=== PATIENT | male | born 1955 | race African-American/Black ===

== ENCOUNTER 2023-09-27 11:49 | Inpatient (IN) | payer MEDICARE, OTHER ==
[~2023-09-27] VITALS: Ht 165.1 cm; Wt 79.8 kg
[2023-09-27] MEDS ORDERED: ACET-868 PO (12:55)
[2023-09-27] MEDS ORDERED: DOCU100C36 PO (12:55)
[2023-09-27] MEDS ORDERED: LOSA50TA39 PO (12:55)
[2023-09-27] MEDS ORDERED: CHOL100043 PO (12:55)
[2023-09-27] MEDS ORDERED: METO25TA4 PO (12:55)
[2023-09-27] MEDS ORDERED: MEMA10TA PO (12:55)
[2023-09-27] MEDS ORDERED: ASPI-1420 PO (12:55)
[2023-09-27 12:56] LABS: BASOPHILS # (AUTO) 0.1 K/uL (0.0-0.2); EOSINOPHILS # (AUTO) 0.5 K/uL (0.0-0.7); MONOCYTES # (AUTO) 0.8 K/uL (0.1-1.30)
[2023-09-27 13:00] LABS: BASOPHILS % (AUTO) 0.7 % (0.0-2.0); EOSINOPHILS % (AUTO) 6.1 % (0.0-6.0); HEMATOCRIT 54 % (39-51); LYMPHOCYTES # (AUTO) 3.1 K/uL (0.8-4.8); LYMPHOCYTES % (AUTO) 34.7 % (20.0-44.0); MEAN CORPUSCULAR HEMOGLOBIN 32 PG (26.0-33.0); MEAN CORPUSCULAR HGB CONC 33 g/dl (31.0-36.0); MEAN CORPUSCULAR VOLUME 96 fL (80-96); MONOCYTES % (AUTO) 9.2 % (2.0-12.0); NEUTROPHILS # (AUTO) 4.3 K/uL (1.8-8.9); NEUTROPHILS % (AUTO) 49.3 % (43.0-81.0); PLATELET COUNT (AUTO) 169 K/uL (150-450); RED BLOOD CELL COUNT(AUTO) 5.59 MIL/uL (4.5-6.0); RED CELL DISTRIBUTION WIDTH 14.3 % (11.5-15.0); WHITE BLOOD COUNT (AUTO) 8.8 K/uL (4.3-11.0)
[2023-09-27 13:06] LABS: SERUM AMMONIA 16 umol/L (11-32)
[2023-09-27 13:13] LABS: CALCIUM, SERUM 9.3 mg/dL (8.5-10.1); CARBON DIOXIDE 24 mmol/L (21-32); CHLORIDE 105 mmol/L (98-107); CREATININE 1.4 mg/dL (0.6-1.3); GLUCOSE 90 mg/dL (74-106); POTASSIUM 4.6 mmol/L (3.5-5.1); SODIUM SERUM 138 mmol/L (136-145); UREA NITROGEN, BLOOD 14 mg/dL (7-18)
[2023-09-27 13:17] LABS: LACTIC ACID 1.3 mmol/L (0.4-2.0)
[2023-09-27 13:26] LABS: THYROID STIMULATING HORMONE 1.928 uIU/mL (0.358-3.74)
[2023-09-27 13:27] LABS: ALANINE AMINOTRANSFERASE 29 U/L (12-78); ALBUMIN 3.5 g/dL (3.4-5.0); ALCOHOL, BLOOD 5 mg/dL (0-10); ALKALINE PHOSPHATASE 85 U/L (46-116); ASPARTATE AMINOTRANSFERASE 37 U/L (15-37); BILIRUBIN,DIRECT 0.1 mg/dL (0.0-0.2); TOTAL PROTEIN, SERUM 8.7 g/dL (6.4-8.2)
[2023-09-27 13:29] LABS: ACETAMINOPHEN 0 ug/ml (10-30); SALICYLATE 1.4 mg/dL (2.8-20.0)
[2023-09-27] MEDS ORDERED: ACETAMINOPHEN 325 MG TABLET PO PRN ×2 (14:00→15:00)
[2023-09-27] MEDS ORDERED: MAGNESIUM HYDROXIDE 30 ML UDC PO PRN (15:00)
[2023-09-27] MEDS ORDERED: ZOLPIDEM TARTRATE 5 MG TABLET PO PRN (15:00)
[2023-09-27] MEDS ORDERED: Z GUARD REMEDY 4 OZ OINT TP PRN (15:00)
[2023-09-27] MEDS ORDERED: MAG HYDROX/AL HYDROX/SIMETH 30 ML UDC PO PRN (15:00)
[2023-09-27 15:15] VITALS: BP 203/106; TEMP 96.9; O2SAT 97
[2023-09-27] MEDS: CEFTRIAXONE 1 G in IV D5W 50 ML IV SCH (15:35)
[2023-09-27] MEDS: IV D5/0.45 NACL 1,000 ML IV PRN (15:35)
[2023-09-27 16:00] VITALS: BP 186/93; TEMP 97; O2SAT 97
[2023-09-27] MEDS: MEMANTINE HCL 5 MG TABLET PO SCH (16:05)
[2023-09-27] MEDS: hydrALAZINE HCL 50 MG TABLET PO PRN (16:05)
[2023-09-27] MEDS: ENOXAPARIN SODIUM 40 MG/0.4 ML DISP.SYRIN SQ SCH (16:06)
[2023-09-27 17:00] VITALS: BP 183/92; O2SAT 97
[2023-09-27 17:47] VITALS: BP 154/88; O2SAT 97
[2023-09-27 18:03] LABS: ANISOCYTOSIS 1+; BAND % (MANUAL) 1 % (0.0-5.0); BASOPHILS % (MANUAL) 1 % (0.0-2.0); EOSINOPHILS % (MANUAL) 5 % (0-4); LYMPHOCYTES % (MANUAL) 31 % (16-48); MONOCYTES % (MANUAL) 4 % (0-11.0); NEUTROPHILS % (MANUAL) 58 (42-76); PLATELET ESTIMATE ADEQU
[2023-09-27 18:04] LABS: ROULEAUX 1+
[2023-09-27 18:06] LABS: INR 1.06 (0.91-1.10); PROTHROMBIN TIME 11.2 SECS (9.2-11.1)
[2023-09-27 19:35] LABS: AMPHETAMINE, URINE NEGATIVE (NEGATIVE); BARBITURATE, URINE NEGATIVE (NEGATIVE); BENZODIAZEPINE, URINE NEGATIVE (NEGATIVE); COCCAINE, URINE NEGATIVE (NEGATIVE); OPIATE, URINE NEGATIVE (NEGATIVE); PHENCYCLIDINE SCREEN,URINE NEGATIVE (NEGATIVE)
[2023-09-27 19:36] LABS: CANNABINOID, URINE POSITIVE (NEGATIVE)
[2023-09-27 20:12] LABS: APPEARANCE,URINE CLEAR (CLEAR); BILIRUBIN,URINE NEGATIVE (NEGATIVE); BLOOD, URINE NEGATIVE Ery/uL (NEGATIVE); COLOR,URINE YELLOW (YELLOW); KETONES,URINE NEGATIVE (NEGATIVE); LEUKOCYTE ESTERASE ,URINE NEGATIVE (NEGATIVE); NITRITE, URINE NEGATIVE (NEGATIVE); PH,URINE 6.5 (5.0-8.0); PROTEIN,URINE NEGATIVE (NEGATIVE); UGLUCOSE NEGATIVE (NEGATIVE); UROBILINOGEN,URINE 0.2 EU/dL (0.2)
[2023-09-28] MEDS: DOCUSATE SODIUM 100 MG CAPSULE PO SCH (08:19)
[2023-09-28] MEDS: ASPIRIN EC 81 MG TABLET.DR PO SCH (08:19)
[2023-09-28] MEDS: PANTOPRAZOLE 40 MG TABLET.DR PO SCH (08:19)
[2023-09-28] MEDS: METOPROLOL SUCCINATE 25 MG TAB.SR.24H PO SCH (08:21)
[2023-09-28] MEDS: LOSARTAN POTASSIUM 50 MG TABLET PO SCH ×2 (08:21→13:13)
[2023-09-28] MEDS: hydrALAZINE HCL 50 MG TABLET PO SCH (13:12)
[2023-09-28 16:59] LABS: BASOPHILS # (AUTO) 0.2 K/uL (0.0-0.2); EOSINOPHILS # (AUTO) 0.2 K/uL (0.0-0.7); EOSINOPHILS % (AUTO) 2.1 % (0.0-6.0); HEMATOCRIT 55 % (39-51); LYMPHOCYTES # (AUTO) 1.2 K/uL (0.8-4.8); LYMPHOCYTES % (AUTO) 12.2 % (20.0-44.0); MEAN CORPUSCULAR HEMOGLOBIN 33 PG (26.0-33.0); MEAN CORPUSCULAR HGB CONC 34 g/dl (31.0-36.0); MEAN CORPUSCULAR VOLUME 96 fL (80-96); MONOCYTES # (AUTO) 0.8 K/uL (0.1-1.30); MONOCYTES % (AUTO) 7.7 % (2.0-12.0); NEUTROPHILS # (AUTO) 7.7 K/uL (1.8-8.9); PLATELET COUNT (AUTO) 164 K/uL (150-450); RED BLOOD CELL COUNT(AUTO) 5.77 MIL/uL (4.5-6.0); RED CELL DISTRIBUTION WIDTH 14.6 % (11.5-15.0); WHITE BLOOD COUNT (AUTO) 10.1 K/uL (4.3-11.0)
[2023-09-28 17:30] LABS: CALCIUM, SERUM 9.6 mg/dL (8.5-10.1); CREATININE 1.4 mg/dL (0.6-1.3); MAGNESIUM 2.2 mg/dL (1.8-2.4); PHOSPHORUS 3.2 mg/dL (2.5-4.9); POTASSIUM 3.4 mmol/L (3.5-5.1)
[2023-09-28 17:35] LABS: LYMPHOCYTES % (MANUAL) 19 % (16-48); MONOCYTES % (MANUAL) 9 % (0-11.0); NEUTROPHILS % (MANUAL) 72 (42-76); PLATELET ESTIMATE ADEQUATE
[2023-09-28 17:36] LABS: ANISOCYTOSIS 1+
[2023-09-28 20:00] VITALS: BP 169/109; TEMP 97.4; O2SAT 97
[2023-09-28] MEDS: hydrALAZINE HCL 50 MG TABLET PO ONE (22:22)
[2023-09-28] MEDS: ONDANSETRON HCL/PF 4 MG/2 ML VIAL IVP PRN (23:46)
[2023-09-29 00:10] VITALS: BP 168/111
[2023-09-29 04:00] VITALS: BP 165/107; TEMP 98.1; O2SAT 97
[2023-09-29 07:33] LABS: BASOPHILS % (AUTO) 0.3 % (0.0-2.0); EOSINOPHILS % (AUTO) 0.4 % (0.0-6.0); HEMATOCRIT 53 % (39-51); HEMOGLOBIN 18.4 g/dL (13.5-17.5); LYMPHOCYTES # (AUTO) 1.6 K/uL (0.8-4.8); LYMPHOCYTES % (AUTO) 13.5 % (20.0-44.0); MEAN CORPUSCULAR HEMOGLOBIN 33 PG (26.0-33.0); MEAN CORPUSCULAR HGB CONC 35 g/dl (31.0-36.0); MEAN CORPUSCULAR VOLUME 94 fL (80-96); MONOCYTES # (AUTO) 1.3 K/uL (0.1-1.30); MONOCYTES % (AUTO) 11.1 % (2.0-12.0); NEUTROPHILS # (AUTO) 8.7 K/uL (1.8-8.9); NEUTROPHILS % (AUTO) 74.7 % (43.0-81.0); PLATELET COUNT (AUTO) 181 K/uL (150-450); RED BLOOD CELL COUNT(AUTO) 5.65 MIL/uL (4.5-6.0); RED CELL DISTRIBUTION WIDTH 14.2 % (11.5-15.0); WHITE BLOOD COUNT (AUTO) 11.6 K/uL (4.3-11.0)
[2023-09-29 07:57] LABS: CALCIUM, SERUM 9.1 mg/dL (8.5-10.1); CREATININE 1.5 mg/dL (0.6-1.3); MAGNESIUM 2.1 mg/dL (1.8-2.4); POTASSIUM 3.6 mmol/L (3.5-5.1)
[2023-09-29 08:00] VITALS: BP 153/101; TEMP 98.4; O2SAT 95
[2023-09-29 16:00] VITALS: BP 129/87; TEMP 98.6; O2SAT 96
[2023-09-29 20:00] VITALS: BP 135/91; TEMP 98.1; O2SAT 96
[2023-09-30 04:00] VITALS: BP 143/92; TEMP 98.6; O2SAT 97
[2023-09-30 07:29] LABS: BASOPHILS # (AUTO) 0.1 K/uL (0.0-0.2); BASOPHILS % (AUTO) 0.5 % (0.0-2.0); EOSINOPHILS # (AUTO) 0.2 K/uL (0.0-0.7); EOSINOPHILS % (AUTO) 1.8 % (0.0-6.0); HEMATOCRIT 51 % (39-51); HEMOGLOBIN 17.4 g/dL (13.5-17.5); LYMPHOCYTES # (AUTO) 3.2 K/uL (0.8-4.8); LYMPHOCYTES % (AUTO) 31.1 % (20.0-44.0); MEAN CORPUSCULAR HEMOGLOBIN 33 PG (26.0-33.0); MEAN CORPUSCULAR HGB CONC 34 g/dl (31.0-36.0); MEAN CORPUSCULAR VOLUME 95 fL (80-96); MONOCYTES # (AUTO) 1.3 K/uL (0.1-1.30); MONOCYTES % (AUTO) 13.2 % (2.0-12.0); NEUTROPHILS # (AUTO) 5.4 K/uL (1.8-8.9); NEUTROPHILS % (AUTO) 53.4 % (43.0-81.0); PLATELET COUNT (AUTO) 176 K/uL (150-450); RED BLOOD CELL COUNT(AUTO) 5.33 MIL/uL (4.5-6.0); RED CELL DISTRIBUTION WIDTH 14.1 % (11.5-15.0); WHITE BLOOD COUNT (AUTO) 10.1 K/uL (4.3-11.0)
[2023-09-30 08:00] VITALS: BP 126/94; TEMP 98.3; O2SAT 95
[2023-09-30 08:41] LABS: CALCIUM, SERUM 8.8 mg/dL (8.5-10.1); CREATININE 1.8 mg/dL (0.6-1.3); POTASSIUM 3.1 mmol/L (3.5-5.1)
[2023-09-30] MEDS: POTASSIUM CL. PREMIX PERIPHER. 50 ML IV SCH (09:37)
[2023-09-30] MEDS: POTASSIUM CHLORIDE 10 MEQ TABLET.SA PO ONE (11:16)
[2023-09-30] MEDS ORDERED: HYDR-4077 PO (12:50)
[2023-09-30] MEDS ORDERED: LOSA50TA39 PO (12:50)
[2023-09-30 16:00] VITALS: BP 119/78; TEMP 98.5; O2SAT 99
[2023-09-30 17:28] VITALS: BP 119/78
== END 2023-09-30 17:30 | disposition home health service (06) | DRG 640 ==
LOC: ER 11:54 → MEDSG1 14:25
PROVIDERS: ADMIT Legal Medicine; ATTEND Legal Medicine
DX: E86.0 Dehydration (principal); G92.8 Other toxic encephalopathy; F03.90 Unspecified dementia, unspecified severity, without behavioral disturbance, psychotic disturbance, mood disturbance, and anxiety; I12.9 Hypertensive chronic kidney disease with stage 1 through stage 4 chronic kidney disease, or unspecified chronic kidney disease; I25.10 Atherosclerotic heart disease of native coronary artery without angina pectoris; E86.1 Hypovolemia; N18.30 Chronic kidney disease, stage 3 unspecified; Z79.82 Long term (current) use of aspirin; Z79.899 Other long term (current) drug therapy; N40.0 Benign prostatic hyperplasia without lower urinary tract symptoms; R53.1 Weakness
CPT/HCPCS: 36415; 70450-TC; 71045-TC; 71250-TC; 80048-TC; 80076-TC; 82140-TC; 83605-TC; 83735-TC; 84100-TC; 84443-TC; 84484-TC; 85025-TC; 85730-TC; 87040-TC; 87081-TC; 87086-TC; 97110-TC; 97116-TC; 97530-TC; A4223; G0378; G0480; J0696; J1650; J2405; J3480; J3490; J7060